=== PATIENT | female | born 1960 | race Caucasian/White ===

== ENCOUNTER 2022-12-23 15:11 | Inpatient (IN) | payer OTHER ==
[~2022-12-23] VITALS: Ht 172.7 cm; Wt 97.5 kg
--- NOTE | 2022-12-23 15:30 | NUR ---
[id number] AND [employer] FOR SUSPECTED SUICIDE ATTEMPT BY INGESTING UNKNOWN AMOUNT OF TRAZADONE AND AMBIEN. PLACED IN BED, AAOX4, COOPERATIVE- ANSWERS QUESTION, BREATHING UNLABORED SATURATING AT 97%, DENIES SI OR HURTING HERSELF, WILL CONTINUE TO MONITOR.
--- NOTE | 2022-12-23 15:56 | NUR ---
PATIENT ON HOLD 5150 FORMS FILLED AND SIGNED BY [employer].
--- NOTE | 2022-12-23 17:55 | NUR ---
DINING SERVICE INSPECTOR AT BEDSIDE
[2022-12-23 18:09] LABS: BASOPHILS # (AUTO) 0.1 K/uL (0.0-0.2); BASOPHILS % (AUTO) 0.6 % (0.0-2.0); EOSINOPHILS % (AUTO) 1.1 % (0.0-6.0); HEMATOCRIT 44 % (33-45); HEMOGLOBIN 14.2 g/dL (11.5-14.8); LYMPHOCYTES # (AUTO) 2.6 K/uL (0.8-4.8); MEAN CORPUSCULAR HGB CONC 32 g/dl (31.0-36.0); MEAN CORPUSCULAR VOLUME 86 fL (82-100); MONOCYTES # (AUTO) 0.8 K/uL (0.1-1.30); MONOCYTES % (AUTO) 9.9 % (2.0-12.0); NEUTROPHILS # (AUTO) 4.4 K/uL (1.8-8.9); NEUTROPHILS % (AUTO) 55.4 % (43.0-81.0); PLATELET COUNT (AUTO) 239 K/uL (150-450); RED BLOOD CELL COUNT(AUTO) 5.15 MIL/uL (4.0-5.2); WHITE BLOOD COUNT (AUTO) 7.9 K/uL (4.3-11.0)
[2022-12-23 18:19] LABS: CALCIUM, SERUM 9.4 mg/dL (8.5-10.1); CARBON DIOXIDE 26 mmol/L (21-32); CHLORIDE 107 mmol/L (98-107); CREATININE 0.8 mg/dL (0.6-1.3); GLUCOSE 86 mg/dL (74-106); POTASSIUM 3.5 mmol/L (3.5-5.1); SODIUM SERUM 142 mmol/L (136-145); UREA NITROGEN, BLOOD 7 mg/dL (7-18)
[2022-12-23 18:26] LABS: ALANINE AMINOTRANSFERASE 34 U/L (12-78); ALCOHOL, BLOOD < 3 mg/dL (0-0); ALKALINE PHOSPHATASE 110 U/L (46-116); ASPARTATE AMINOTRANSFERASE 30 U/L (15-37); BILIRUBIN,DIRECT 0.1 mg/dL (0.0-0.2); BILIRUBIN,TOTAL 0.3 mg/dL (0.2-1.0); TOTAL PROTEIN, SERUM 7.9 g/dL (6.4-8.2)
[2022-12-23 18:38] LABS: ACETAMINOPHEN < 10 ug/ml (10-30)
--- NOTE | 2022-12-23 18:42 | NUR ---
URINE SAMPLE SENT TO LAB
--- NOTE | 2022-12-23 19:49 | NUR ---
[facility]ISIS TEAM CALLED ETA 1 HOUR
[2022-12-23 20:15] LABS: BILIRUBIN,URINE NEGATIVE (NEGATIVE); COLOR,URINE YELLOW (YELLOW); LEUKOCYTE ESTERASE ,URINE NEGATIVE (NEGATIVE); NITRITE, URINE NEGATIVE (NEGATIVE); PH,URINE 6.5 (5.0-8.0); PROTEIN,URINE NEGATIVE (NEGATIVE); UGLUCOSE NEGATIVE (NEGATIVE); UROBILINOGEN,URINE 0.2 EU/dL (0.2)
[2022-12-23 20:46] LABS: BACTERIA,URINE None seen /HPF (None Seen); WBC,URINE 0-2 /HPF (0-3)
--- NOTE | 2022-12-23 21:50 | NUR ---
CRISIS TEAM AT BEDSIDE
--- NOTE | 2022-12-24 02:33 | NUR ---
PT SITTING QUIETLY IN BED VSS
--- NOTE | 2022-12-24 04:39 | NUR ---
Patient is resting comfortably in bed with eyes closed. Easily aroused. VSS
--- NOTE | 2022-12-24 07:56 | NUR ---
REPORT GIVEN TO ARPAN FOR [facility]
--- NOTE | 2022-12-24 09:00 | NUR ---
RN- ADMISSION NOTE PATIENT IS A 62 YEAR OLD FEMALE, ADMITTED FROM [facility] ER, PLACED ON A 5150 FOR DTS. PER HOLD, "UPON ARRIVAL, OFFICERS OBSERVED SUBJ LAYING IN HER BED. OFFICERS SPOKE TO SON WHO STATED SUBJ SAID, "I WANT TO KILL MYSELF." SUBJ TAKES VARIOUS UNKNOWN MEDICATION." UPON FACE TO FACE ASSESSMENT, PATIENT IS ALERT AND ORIENTED X4, WELL GROOMED, CLEAR SPEECH, DENIES SI/HI AND AUDITORY/VISUAL HALLUCINATIONS AT THIS TIME. VITAL SIGNS TAKEN, B/P 159/75, P 81, R 20, T 98.0, O2 SAT 98% ON ROOM AIR. CONTACTED DR. PRO AND DR. BERRY AND INFORMED THEM OF THE ADMISSION WITH PSYCHIATRIC ADMITTING ORDERS. PATIENT HANDBOOK GIVEN WITH PATIENT'S RIGHTS AND GUIDE TO PRESCRIPTIONS. SKIN INTACT. WILL CONTINUE TO MONITOR PATIENT Q 15 MINUTES FOR SAFETY AND BEHAVIOR PER [employer].
--- NOTE | 2022-12-24 09:01 | NUR ---
PT TRANSFERRED TO [facility] IN STABLE CONDITION
[2022-12-24] MEDS ORDERED: LORAZEPAM 0.5 MG TABLET PO PRN (10:00)
[2022-12-24] MEDS ORDERED: MAG HYDROX/AL HYDROX/SIMETH 30 ML UDC PO PRN (10:00)
[2022-12-24] MEDS ORDERED: BLOOD SUGAR DIAGNOSTIC 1 EACH STRIP IN ONE (10:00)
[2022-12-24] MEDS ORDERED: ZOLPIDEM TARTRATE 5 MG TABLET PO PRN (10:00)
[2022-12-24] MEDS ORDERED: ACETAMINOPHEN 325 MG TABLET PO PRN (10:00)
[2022-12-24] MEDS ORDERED: MAGNESIUM HYDROXIDE 30 ML UDC PO PRN (10:00)
--- NOTE | 2022-12-24 11:58 | NUR ---
Treatment Plan: Pt refused to sign treatment plan and was suspicious.
--- NOTE | 2022-12-24 11:58 | NUR ---
ROEL Initial Discharge Note: Patient currently resides at [address] [place] [address]; ([phone]). Patient lives with . ROEL will contact pt's Tariq ([phone]) to discuss treatment/discharge plan. ROEL will work with the MD, family, and treatment team.
--- NOTE | 2022-12-24 11:58 | NUR ---
ROEL Clinical Note: Pt placed on a 5150 hold for danger to self. Pt brought to the hospital due to overdose. Patient currently resides at [address] [place] [address]; ([phone]). Patient lives with . ROEL will contact pt's Tariq ([phone]) to discuss treatment/discharge plan. ROEL will work with the MD, family, and treatment team.
[2022-12-24] MEDS ORDERED: LEVO112T5 PO (14:39)
[2022-12-24] MEDS ORDERED: NARA2.5T2 PO (14:39)
[2022-12-24] MEDS ORDERED: ONDA4TAB5 PO (14:39)
[2022-12-24] MEDS ORDERED: LINA290C PO (14:39)
[2022-12-24] MEDS ORDERED: VENL150C58 PO (14:39)
[2022-12-24] MEDS ORDERED: PHEN37.54 PO (14:39)
[2022-12-24 16:00] VITALS: BP 152/95
[2022-12-24] MEDS ORDERED: [UNRECOGNIZED DRUG - CODE] TP (16:31)
[2022-12-24] MEDS ORDERED: IBUP-1957 PO (16:31)
[2022-12-24] MEDS ORDERED: MINE105O TP (16:31)
[2022-12-24] MEDS ORDERED: LACT1CAP71 PO (16:31)
[2022-12-24] MEDS ORDERED: TRAZ150T75 MT (16:33)
[2022-12-24] MEDS ORDERED: IBUPROFEN 400 MG TABLET PO PRN (17:00)
[2022-12-24] MEDS: ACIDOPHILUS/BULGARICUS 1 EACH TAB.CHEW PO SCH (17:35)
[2022-12-24 19:59] VITALS: BP 182/89
[2022-12-24] MEDS: ZOLPIDEM TARTRATE 5 MG TABLET PO PRN (22:08)
[2022-12-25] MEDS: LEVOTHYROXINE SODIUM 112 MCG TABLET PO SCH (07:47)
[2022-12-25 08:00] VITALS: BP 145/86
[2022-12-25] MEDS: ESCITALOPRAM OXALATE (10 MG) 10 MG TABLET PO SCH (09:00)
[2022-12-25] MEDS: ACIDOPHILUS/BULGARICUS 1 EACH TAB.CHEW PO SCH ×2 (09:00→17:13)
[2022-12-25] MEDS: LISINOPRIL (5MG) 5 MG TABLET PO SCH (09:00)
--- NOTE | 2022-12-25 13:09 | NUR ---
UR Note: Assigned CM : Catie @[phone] Auth was given for 7 days - 12/24/2022 through 12/30/2022 Review is due on 12/30/2022 AUTH #[id number]
[2022-12-25 16:00] VITALS: BP 138/78
[2022-12-25 20:00] VITALS: BP 142/82
[2022-12-25 20:42] VITALS: BP 142/82
[2022-12-25] MEDS: ZOLPIDEM TARTRATE 5 MG TABLET PO PRN (22:56)
--- NOTE | 2022-12-26 06:40 | NUR ---
PATIENT SLEEPING, EASY TO AROUSE. ABLE TO VERBALIZE NEEDS. A/O X4. RELAXED, QUIET, DEPRESSED, GUARDED. NO SOB OR NOTED. NO C/O PAIN. NO SI/HI AT THIS TIME. COOPERATIVE, AMBULATORY AND INDEPENDENT WITH ADLS. SAFETY PRECAUTIONS IN PLACE. WILL ENDORSE TO NEXT SHIFT FOR CONTINUITY OF CARE.
[2022-12-26 08:00] VITALS: BP_SYST 109; BP_SYST 151; BP_DIAS 63; BP_DIAS 80
[2022-12-26] MEDS: LEVOTHYROXINE SODIUM 112 MCG TABLET PO SCH (08:30)
[2022-12-26 09:00] VITALS: BP 151/80
[2022-12-26] MEDS: LISINOPRIL (5MG) 5 MG TABLET PO SCH (09:00)
[2022-12-26] MEDS: ACIDOPHILUS/BULGARICUS 1 EACH TAB.CHEW PO SCH (09:00)
[2022-12-26] MEDS: ESCITALOPRAM OXALATE (10 MG) 10 MG TABLET PO SCH (09:00)
--- NOTE | 2022-12-26 09:52 | NUR ---
SW Discharge Note: Patient [place] [address] [place] [address]; ([phone]). Patients Tariq ([phone]) will potato picker pt at 1PM. Pt is alert and oriented x3. Pt happy to be going back home. Pt denied suicidal or homicidal ideation. Pt denied visual/auditory hallucination. Pt will follow up with Supply Chain Coordinator, Dr.Kenneth Edy Martin located at [address] [place] [id number]; ([phone]) who will monitor and provide pts antipsychotic medications. Pt presents with euthymic mood and congruent affect.
--- NOTE | 2022-12-26 10:10 | NUR ---
Dr. Cannon gave an order to D/C hold and D/C home with no prescriptions. Per. pt. she doesn't need prescriptions on both psych and medical doctors. Medical doctor made aware of the discharge. Pt. without distress, denies suicidal and homicidal. Belongings ready and discharge papers ready.
--- NOTE | 2022-12-26 11:35 | NUR ---
Patient refused all her morning medications, explained risks and benefits x3, still refused, patient stated she does not take and need any medication, charge nurse made aware.
--- NOTE | 2022-12-26 12:50 | NUR ---
Pt. left the unit with belongings and escorted by staff to the lobby. Pt. left the unit ambulatory and on stable condition. Pt. being picked up by the Ameya Drummond. V/S taken : BP 153/75, HI 73, RR 18, temp 98.2 and oxygen sat 96%.
== END 2022-12-26 12:50 | disposition home or self-care (01) | DRG 885 ==
LOC: ER 15:22 → GPS 12-24 07:22
PROVIDERS: ADMIT Psychiatry & Neurology Psychiatry; ATTEND Nurse Practitioner Acute Care
DX: F29 Unspecified psychosis not due to a substance or known physiological condition (principal); R45.851 Suicidal ideations; D68.59 Other primary thrombophilia; F43.21 Adjustment disorder with depressed mood; E03.9 Hypothyroidism, unspecified; E66.9 Obesity, unspecified; I10 Essential (primary) hypertension; Z68.32 Body mass index [BMI] 32.0-32.9, adult
CPT/HCPCS: 36415; 80048-TC; 80076-TC; 81001; 85025-TC; 87081-TC; C9803; G0480